=== PATIENT | female | born 1970 | race Two or more races ===

== ENCOUNTER 2019-08-26 10:38 | Inpatient (IN) | payer MEDICAID ==
[2019-08-03 12:25] LABS: APPEARANCE,URINE SLIGHTLY CLOUDY; BILIRUBIN, URINE NEGATIVE (NEGATIVE); COLOR,URINE PALE YELLOW; GLUCOSE, URINE (UA) NEGATIVE (NEGATIVE); KETONES,URINE NEGATIVE (NEGATIVE); LEUKOCYTE ESTERASE ,URINE 3+ (NEGATIVE); NITRITE,URINE NEGATIVE (NEGATIVE); PH,URINE 6 (4.5-8.0); PROTEIN,URINE NEGATIVE (NEGATIVE); UROBILINOGEN,URINE NORMAL MG/DL (0.0-1.0)
[2019-08-03 12:37] LABS: ANION GAP 7 mmol/L (5-15); BLOOD UREA NITROGEN 9 mg/dL (7-18); CALCIUM 8.7 MG/DL (8.5-10.1); CARBON DIOXIDE 28 MMOL/L (21-32); CHLORIDE 106 MMOL/L (98-107); CREATININE 0.7 MG/DL (0.55-1.30); POTASSIUM 4.4 MMOL/L (3.5-5.1); SODIUM 141 MMOL/L (136-145)
[2019-08-03 13:09] LABS: BASOPHILS % (AUTO) 2.7 % (0.0-2.0); EOSINOPHILS % (AUTO) 1.6 % (0.0-3.0); HEMATOCRIT 36.8 % (37.0-47.0); HEMOGLOBIN 13.2 G/DL (12.0-16.0); LYMPHOCYTES % (AUTO) 43.5 % (20.0-45.0); MEAN CORPUSCULAR VOLUME 105 FL (80-99); MONOCYTES % (AUTO) 5.5 % (1.0-10.0); NEUTROPHILS % (AUTO) 46.8 % (45.0-75.0); PLATELET COUNT 312 K/UL (150-450); RED BLOOD COUNT 3.52 M/UL (4.20-5.40); RED CELL DISTRIBUTION WIDTH 12.7 % (11.6-14.8); WHITE BLOOD COUNT 4.2 K/UL (4.8-10.8)
[2019-08-03 13:16] LABS: INR 0.9 (0.9-1.1)
--- NOTE | 2019-08-03 16:43 | Diagnostic Imaging Report ---
Indication: Cough Technique: 2 views of the chest Comparison: None Findings: Lungs and pleural spaces are clear. The heart size is normal. The bones are unremarkable. No significant interim change. Impression: Negative
--- NOTE | 2019-08-24 15:15 | Pre-op HX & Phy Repo 2 SIG ---
DATE OF ADMISSION: 08/26/2019 SCHEDULED FOR SURGERY: 08/26/2019 HISTORY OF PRESENT ILLNESS: The patient is a 49-year-old female in overall good health with invasive ductal carcinoma of the right breast. The patient presented in February of 2019 with a two-month history of a mass in the upper outer quadrant of the right breast, it was approximately 3.5 cm on imaging at 10 o'clock, 7 cm from the nipple. Core biopsy revealed invasive ductal carcinoma, poorly differentiated. She had no prior history of breast disease. No family history of breast cancer. Clinically, there was a 4 cm mass, which was mobile. The lesion was estrogen and progesterone positive, but HER2 negative. With a Ki-67 high she was treated with Ibrance and letrozole with a negative workup for metastatic disease. The lesion became smaller and she is now scheduled to undergo surgery. She has no prior history of breast disease. No family history of breast cancer. PAST MEDICAL HISTORY: None. PAST SURGICAL HISTORY: section. MEDICATIONS: None. ALLERGIES: None. REVIEW OF SYSTEMS: Para 4, 4. She has regular menstrual periods. PHYSICAL EXAMINATION: GENERAL: The patient is 5 feet 5 inches, 170 pounds. VITAL SIGNS: Within normal limits. HEENT: Within normal limits. LUNGS: Clear. HEART: Regular rhythm. BREASTS: Moderately large and ptotic. The right breast in the periphery at 10 o'clock is a 3 x 3 cm mass, which is not fixed to the skin or to the underlying chest wall. The left breast is unremarkable. There is no palpable axillary or supraclavicular lymphadenopathy. ABDOMEN: Soft. PELVIC/RECTAL: Per primary care. EXTREMITIES: Without edema. NEUROLOGIC: Physiologic. IMPRESSION: Invasive ductal carcinoma, right breast. ER and VT positive, HER2 negative, status post neoadjuvant therapy. PLAN: Right breast partial mastectomy and right axillary lymph node biopsy. I had a full discussion with the patient regarding the nature of the condition, the nature of the surgery, indications, alternatives, options, and risks including bleeding, infection, recurrence, need for additional treatment or surgery or radiation or other treatments based on final pathology, scarring or distortion of the breast or nipple etc., and need for drain for the axilla. All questions have been answered. She understands and agrees to proceed. Adryan Estrada M.D. DR: SIVAN JOB#: [id number] CC: YAHAIRA
[~2019-08-26] VITALS: Ht 162.6 cm; Wt 76.7 kg
[2019-08-26] VITALS (14 sets, daily range): BP systolic 108–134; BP diastolic 55–83
[2019-08-26] MEDS ORDERED: NeoSporin Gu Irrig 1ml Amp IRRIG ONE (11:35)
[2019-08-26] MEDS ORDERED: Bacitracin 50000 Units Vial ONE (11:35)
--- NOTE | 2019-08-26 11:35 | Pre-Procedure Note/Attestation ---
Pre-Procedure Note/Attestation Complete Prior to Procedure Planned Procedure: right Procedure Narrative: right breast partial mastectomy and right axillary lymph node biopsy Indications for Procedure Pre-Operative Diagnosis: invasive ductal carcinoma right breast Attestation I attest that I discussed the nature of the procedure; its benefits; risks and complications; and alternatives (and the risks and benefits of such alternatives ), prior to the procedure, with the patient (or the patient's legal sales representative advertising). I attest that, if there was a reasonable possibility of needing a blood transfusion, the patient (or the patient's legal sales representative advertising) was given the [facility] standardized written summary, pursuant to the [place] Blood Safety Act ([place] Health and Safety Code # 1645, as amended). I attest that I re-evaluated the patient just prior to the surgery and that there has been no change in the patient's H&P, except as documented below: none Adryan Estrada MD Aug 26, 2019 11:35
[2019-08-26] MEDS ORDERED: LR 1000ml 1,000 ML IVLG SCH (11:48)
[2019-08-26] MEDS ORDERED: Sodium Chloride 10ml vial INJ ONE (11:51)
[2019-08-26] MEDS ORDERED: Lidocaine 1% MPF 10mg/ml 5ml ONE (11:51)
[2019-08-26] MEDS ORDERED: Propofol 200mg/20ml IV ONE ×2 (11:51→12:31)
[2019-08-26] MEDS ORDERED: Dexamethasone 4mg/ml vial ONE (11:51)
--- NOTE | 2019-08-26 11:52 | Anethesia Preoperative Eval ---
Anesthesia Pre-op PMH/ROS General Date of Evaluation: Aug 26, 2019 Time of Evaluation: 12:11 Anesthesiologist: Jesse ASA Score: ASA 2 Mallampati Score Class I : Soft palate, uvula, fauces, pillars visible Class II: Soft palate, uvula, fauces visible Class III: Soft palate, base of uvula visible Class IV: Only hard plate visible Mallampati Classification: Class II Surgeon: Natalie Diagnosis: R Breast CA Surgical Procedure: R Breast Partial Mastectomy And R Axillary Node Bx Anesthesia History: none Family History: no anesthesia problems Allergies: Coded Allergies: No Known Allergies (Unverified , 08/26/19) Medications: see eMAR Patient NPO?: Yes NPO Date: Aug 25, 2019 NPO Time: 1800 Past Medical History Hematology/Immune: Reports: other - R Breast Invasive Ductal CA PSxH Narrative: C/S Anesthesia Pre-op Phys. Exam Physician Exam Last Vital Signs Date Time Temp Pulse Resp B/P (MAP) Pulse Ox O2 Delivery O2 Flow Rate FiO2 08/26/19 11:27 Room Air 08/26/19 11:22 97.3 61 18 126/65 (85) 98 Constitutional: NAD Neurologic: CN 2-12 intact Cardiovascular: RRR Respiratory: CTA Gastrointestinal: S/NT/ND Airway Exam Mallampati Score: Class II MO: full ROM: full Teeth: intact Anesthesia Pre-op A/P Labs Urine Test Test 08/26/19 10:55 Urine HCG, Qualitative Negative (NEGATIVE) Risk Assessment & Plan Assessment: ASA 2 Plan: GA, SED Status Change Before Surgery: No Pre-Antibiotics Dru Gram Ancef IV Given Within 1 Hr of Incision: Yes Time Given: 12:31 Mitul Molina MD Aug 26, 2019 11:52
[2019-08-26] MEDS ORDERED: fentaNYL 100 mcg/2 mL IV ONE (11:54)
--- NOTE | 2019-08-26 11:54 | Immediate Post-Op Evaluation ---
Immediate Post-Op Evalulation Immediate Post-Op Evalulation Procedure: R Breast Partial Mastectomy And R Axillary Node Bx Date of Evaluation: Aug 26, 2019 Time of Evaluation: 14:10 IV Fluids: 700 LR Blood Products: 0 Estimated Blood Loss: 20 Urinary Output: 0 Blood Pressure Systolic: 110 Blood Pressure Diastolic: 62 Pulse Rate: 74 Respiratory Rate: 16 O2 Sat by Pulse Oximetry: 96 Temperature (Fahrenheit): 97.1 Pain Score (1-10): 2 Nausea: No Vomiting: No Complications 0 Patient Status: awake, reacts, patent, none Hydration Status: adequate Dru Gram Ancef IV Given Within 1 Hr of Incision: Yes Time Given: 12:31 Mitul Molina MD Aug 26, 2019 11:54
[2019-08-26] MEDS ORDERED: Sterile Water Irrig 1000ml IRRIG ONE (12:00)
[2019-08-26] MEDS ORDERED: Ketorolac 30mg Inj IV PRN ×2 (12:00)
[2019-08-26] MEDS ORDERED: NS Irrig 1000ml ONE (12:00)
[2019-08-26] MEDS ORDERED: HYDROcodone/Acetamin 5/325 tab ORAL PRN (12:00)
[2019-08-26] MEDS ORDERED: Hydromorphone 0.5mg/0.5ml inj IVP PRN (12:00)
[2019-08-26] MEDS ORDERED: Meperidine 25mg/0.5ml Inj (FOR RIGORS ONLY) IV PRN (12:00)
[2019-08-26] MEDS ORDERED: fentaNYL 100 mcg/2 mL IV PRN (12:00)
[2019-08-26] MEDS ORDERED: LORazepam Inj 2mg/ml 1ml IV PRN (12:00)
[2019-08-26] MEDS ORDERED: Atropine Sulfate 0.4mg/ml inj IVP PRN (12:00)
[2019-08-26] MEDS ORDERED: Acetaminophen (Non formulary) 100 ML IV ONE (12:00)
[2019-08-26] MEDS ORDERED: Labetalol 5mg/ml 20ml vial IV PRN (12:00)
[2019-08-26] MEDS ORDERED: Midazolam 2mg/2ml Inj IVP PRN (12:00)
[2019-08-26] MEDS ORDERED: DiphenhydrAMINE 50mg/ml Inj IVP PRN (12:00)
[2019-08-26] MEDS ORDERED: HYDROcodone/Acetamin 7.5/325 tab ORAL PRN (12:00)
[2019-08-26] MEDS ORDERED: Metoclopramide 10mg/2ml Inj IVP PRN ×2 (12:00→14:00)
[2019-08-26] MEDS ORDERED: LR 1000ml ONE (12:00)
[2019-08-26] MEDS ORDERED: oxyCODONE HCL/Acetaminophen 5/325mg ORAL PRN (12:00)
[2019-08-26] MEDS ORDERED: Lidocaine 1% Plain 30 ml INJ ONE (12:31)
[2019-08-26] MEDS ORDERED: Flumazenil 0.1mg/ml 5ml Inj IV ONE (13:14)
[2019-08-26] MEDS ORDERED: Naloxone 0.4mg/ml Inj ONE (13:30)
--- NOTE | 2019-08-26 13:56 | Brief Operative Note ---
Immediate Post Operative Note Operative Note Pre-op Diagnosis: invasive ductal carcinoma right breast Procedure: right breast partial mastectomy and right axillary lymph node biopsy Post-op Diagnosis: same Post-op Diagnosis: same as pre-op Findings: consistent w/pre-op dx studies Surgeon: lisa Anesthesiologist: zoila Anesthesia: general Specimen: yes - right breast cancer, right axillary lymph node Complications: none Condition: stable Fluids: see anesthesia record Estimated Blood Loss: minimal Drains: CARY Implant(s) used?: No Adryan Estrada MD Aug 26, 2019 13:56
[2019-08-26] MEDS ORDERED: HYDROmorphone 1mg/ml Carpuject SUBQ PRN (14:00)
[2019-08-26] MEDS ORDERED: DiphenhydrAMINE 25mg Tab ORAL PRN (14:00)
[2019-08-26] MEDS: D5 1/2NS w/KCl 20mEq 1,000 ML IV SCH (16:00)
[2019-08-26] MEDS: HYDROcodone/Acetamin 5/325 tab ORAL PRN ×2 (16:33→22:05)
--- NOTE | 2019-08-26 17:15 | Operative Note - Dictated ---
DATE OF OPERATION: 08/26/2019 SURGEON: Adryan Estrada M.D. PACKAGING TECH: None. ANESTHESIOLOGIST: Mitul Molina M.D. TYPE OF ANESTHESIA: General endotracheal. PREOPERATIVE DIAGNOSIS: Invasive ductal carcinoma, right breast. POSTOPERATIVE DIAGNOSIS: Invasive ductal carcinoma, right breast. OPERATION PERFORMED: Right breast partial mastectomy with right axillary lymph node biopsy. INDICATIONS: The patient presented in February 2019 with a 4 cm mass in the periphery of the upper outer quadrant of the right breast. Estrogen and progesterone receptor positive, HER2 negative, Ki-67 38%. She was treated with Ibrance and letrozole with partial response. DESCRIPTION OF PROCEDURE: The patient was taken to the operating room and under general endotracheal anesthesia with sequential compression device stockings in place, she was prepped and draped in usual fashion. A curvilinear incision was made in the periphery of the upper outer quadrant of the right breast and skin flaps dissected circumferentially. A wide resection was performed down to and including the pectoralis fascia. The specimen was given to pathology after orienting it with suture markers anterior, superior, and medial. According to the pathologist evaluation, additional margin was taken medial, inferior, and posterior. The field was copiously irrigated with water and then antibiotic solution and hemostasis carefully achieved with cautery. The incision was closed with interrupted deep dermal subcutaneous 3-0 Vicryl sutures followed by continuous 4-0 Monocryl subcuticular suture. A right axillary incision was made achieving hemostasis with cautery and incising the clavipectoral fascia. An obvious enlarged lymph node was resected with some surrounding lymphofatty areolar tissue using the Thunderbeat electrosurgical device. Through a separate stab incision inferiorly, a large flat Zay-Lopez drain was placed into the axilla and sutured to the skin with 2-0 silk skin suture. The field was irrigated, hemostasis was seen to be secured. Specimen was given for Pathology. The clavipectoral fascia was closed with interrupted 3-0 Vicryl, subcutaneous tissues closed with interrupted 3-0 Vicryl, and the skin closed with continuous 4-0 Monocryl subcuticular suture. Mastisol and half-inch Steri-Strips were applied to both incisions followed by dry sterile dressings and application of a postsurgical brassiere. Final sponge and needle counts were correct. The patient tolerated the procedure well and left the operating room in good condition. Adryan Estrada M.D. DR: TERRY JOB#: [id number] CC:
[2019-08-26] MEDS: ceFAZolin sod 1 GM in D5W 55 ML IV SCH (21:04)
[2019-08-27] VITALS: BP 110/64
[2019-08-27 04:00] VITALS: BP 98/66
[2019-08-27] MEDS: ceFAZolin sod 1 GM in D5W 55 ML IV SCH (04:26)
[2019-08-27] MEDS: D5 1/2NS w/KCl 20mEq 1,000 ML IV SCH (05:20)
[2019-08-27 08:00] VITALS: BP 115/74
[2019-08-27] MEDS: HYDROcodone/Acetamin 5/325 tab ORAL PRN (09:02)
--- NOTE | 2019-08-27 10:55 | General Progress Note ---
Progress Note Progress Note AVSS Doing well using [place] for pain right breast and axilla incisions clean with intact steristrips CARY 10cc serosang overnight Imp: stable Plan: discharge with drain supplies/instructions/limitations provided/discussed Rx Nordco #30 f/u office 08/31 Adryan Estrada MD Aug 27, 2019 10:55
[2019-08-27 12:00] VITALS: BP 108/63
--- NOTE | 2019-08-27 15:01 | 48 Hour Post Anesthesia Eval ---
Post Anesthesia Evaluation Procedure: R Breast Partial Mastectomy And R Axillary Node Bx Date of Evaluation: Aug 27, 2019 Airway: patent Nausea: No Vomiting: No Pain Intensity: 0 Hydration Status: adequate Cardiopulmonary Status: at baseline Mental Status/LOC: patient returned to baseline Post-Anesthesia Complications: 0 Follow-up care needed: ready to discharge Indiana Tran MD Aug 27, 2019 15:01
--- NOTE | 2019-08-29 08:17 | Discharge Summary ---
Discharge Summary Discharge Summary _ DATE OF ADMISSION: 08/26/2019 DATE OF DISCHARGE: 08/27/2019 DISCHARGED BY: Dr. Adryan Estrada HISTORY OF PRESENT ILLNESS: The patient is a 49-year-old female in overall good health with invasive ductal carcinoma of the right breast. The patient presented in February of 2019 with a two-month history of a mass in the upper outer quadrant of the right breast, it was approximately 3.5 cm on imaging at 10 o'clock, 7 cm from the nipple. Core biopsy revealed invasive ductal carcinoma, poorly differentiated. She had no prior history of breast disease. No family history of breast cancer. Clinically, there was a 4 cm mass, which was mobile. The lesion was estrogen and progesterone positive, but HER2 negative. She was treated with Ibrance and letrozole with a negative workup for metastatic disease. The lesion became smaller and she is now scheduled to undergo surgery. BRIEF HOSPITAL COURSE: She underwent right breast partial mastectomy with right axillary lymph node biopsy. Postoperatively, she was admitted for postop care. She was placed on SCDs for DVT prophylaxis. She was encouraged use of incentive spirometry. She was given IV hydration. She was given pain management. Overnight, CARY drained 10 cc serosanguineous drainage. Right breast and axilla incisions were clean and intact with Steri-Strips. She was doing well with [place] for pain. She was cleared for discharge home. FINAL DIAGNOSES: Invasive ductal carcinoma s/p right breast partial mastectomy with right axillary lymph node biopsy DISPOSITION: Patient was discahrged home. DISCHARGE MEDICATIONS: Refer to Discharge Medication List. DISCHARGE INSTRUCTIONS: Follow-up on 08/31 I have been assigned to complete a discharge summary on this account, I was not involved with the patient's management.--Diann Medina NP. Kriss Medina NP Aug 29, 2019 08:17
== END 2019-08-27 13:27 | disposition home or self-care (01) | DRG 363 ==
LOC: SUR 10:38 → 3E 15:23
PROC: 07B50ZX Excision of Right Axillary Lymphatic, Open Approach, Diagnostic (ICD-10-PCS; 2019-08-26)
PROC: 0HBT0ZZ Excision of Right Breast, Open Approach (ICD-10-PCS; principal; 2019-08-26 12:30)
DX: C50.411 Malignant neoplasm of upper-outer quadrant of right female breast (principal); Z17.0 Estrogen receptor positive status [ER+]
CPT/HCPCS: 36415; 71046; 80048; 81003; 81025; 85025; 85610; 85730; 87081; 87086; 93005; 94003; 94150; J2405